=== PATIENT | female | born 1995 | race Hispanic/Latino ===

== ENCOUNTER 2023-09-07 18:00 | Inpatient (IN) | payer MEDICAID, OTHER ==
[2023-09-07] MEDS ORDERED: Ibuprofen 800 MG TAB PO PRN (21:27)
[2023-09-07] MEDS ORDERED: Diphenoxylate HCl/Atropine Tablet PO PRN (21:27)
[2023-09-07] MEDS ORDERED: Carboprost 250 MCG/ML AMP IM PRN (21:27)
[2023-09-07] MEDS ORDERED: Methylergonovine 0.2 MG/ML VIAL IM PRN (21:27)
[2023-09-07] MEDS ORDERED: Tranexamic Acid 1,000 MG/10 ML VIAL IVP PRN (21:27)
[2023-09-07] MEDS ORDERED: Lidocaine 1% (PF) 30 ML VIAL SC PRN (21:27)
[2023-09-07] MEDS ORDERED: Promethazine HCl 25 MG/ML VIAL IM PRN (21:27)
[2023-09-07] MEDS ORDERED: Misoprostol 200 MCG TAB PR PRN (21:27)
[2023-09-07] MEDS ORDERED: hydrALAZINE 20 MG/ML VIAL SLOW IVP PRN (21:27)
[2023-09-07 22:55] LABS: Hematocrit 37.7 % (34.9-44.5); Hemoglobin 13.4 g/dL (12.0-15.5); Mean Corpuscular HGB CONC 35.5 g/dL (32.0-36.0); Mean Corpuscular Hemoglobin 28.9 pg (27.0-33.0); Mean Corpuscular Volume 81.3 fL (81.6-98.3); Mean Platelet Volume 10.6 fL (7.4-10.4); Platelet Count 272 10x3/uL (150-450); RBC Distribution Width 14.6 % (11.5-14.5); Red Blood Cell (RBC) Count 4.64 10x6/uL (3.90-5.03); White Blood Cell (WBC) Count 10.1 10x3/uL (3.5-10.5)
[2023-09-07] MEDS ORDERED: Oxytocin 30 units/NS 500 ML 500 ML IV SCH ×2 (23:00)
[2023-09-07 23:35] LABS: HBsAg Index 0.16 S/CO (0-0.99); Hep B Surf Ag - L&D Non-Reactive S/CO (NonReactive)
[2023-09-07 23:37] LABS: Syphilis Antibody Nonreactive (Nonreactive); Syphilis Antibody Index 0.25 S/CO (<1.00 Non-Reactive)
[2023-09-08] MEDS: Misoprostol 100 MCG TAB VAG SCH (08:33)
[2023-09-08] MEDS: Lactated Ringer's 1,000 ML IV SCH (23:15)
[2023-09-08] MEDS: Penicillin G 2.5 MILL.units 2.5 MILL.UNITS in Premix 1 BAG IVPB SCH (23:16)
[2023-09-08] MEDS: Misoprostol 100 MCG TAB ONE (23:17)
[2023-09-08] MEDS: Oxytocin 30 units/NS 500 ML 500 ML IV SCH (23:22)
[2023-09-08] MEDS: Penicillin G Potassium 5 MILL.UNITS in Sodium Chloride 0.9% 100 ML IVPB SCH (23:22)
[2023-09-09] MEDS: Penicillin G Potassium 5 MILL.UNITS VIAL ONE (00:52)
[2023-09-09] MEDS: Ondansetron PF 4 MG/2 ML Vial IVP PRN (08:43)
[2023-09-09] MEDS: Acetaminophen 500 MG TAB PO PRN (15:06)
[2023-09-09] MEDS: diphenhydrAMINE 50 MG/ML VIAL ONE (15:46)
[2023-09-09 19:15] LABS: Analyzer IN Cardio CS NICU; RapidComm Collect By RN; pH (Cord, venous) 7.195 (7.250-7.350)
[2023-09-09 19:18] LABS: Analyzer IN Cardio CS NICU; RapidComm Collect By RN
[2023-09-09] MEDS ORDERED: Milk Of Magnesia 30 ML UDCUP PO PRN (19:40)
[2023-09-09] MEDS ORDERED: hydrALAZINE 20 MG/ML VIAL SLOW IVP PRN (19:40)
[2023-09-09] MEDS ORDERED: Bisacodyl 10 MG SUPP PR PRN (19:40)
[2023-09-09] MEDS ORDERED: Lanolin Ointment 7 GM TUBE TOP PRN (19:40)
[2023-09-09] MEDS ORDERED: Preparation H Ointment 28 GM TUBE PR PRN (19:40)
[2023-09-09] MEDS: Ibuprofen 800 MG TAB PO SCH (21:08)
[2023-09-09] MEDS: Docusate 100 MG CAP PO SCH (23:00)
[2023-09-09] MEDS ORDERED: Acetaminophen 500 MG TAB PO PRN (23:09)
[2023-09-10 04:16] LABS: #Basophils 0.03 10x3/uL (0.0-0.2); #Eosinphils 0.01 10x3/uL (0.0-0.5); #Monocytes 1.18 10x3/uL (0.0-1.1); #Neutrophils 17.08 10x3/uL (1.5-8.4); %Basophils 0.1 % (0.0-2.0); %Lymphocytes 11.3 % (18.0-47.0); %Monocytes 5.7 % (0.0-10.0); %Neutrophils 82.2 % (40.0-75.0); Hematocrit 36.1 % (34.9-44.5); Hemoglobin 12.7 g/dL (12.0-15.5); Mean Corpuscular HGB CONC 35.2 g/dL (32.0-36.0); Mean Corpuscular Volume 82.4 fL (81.6-98.3); Mean Platelet Volume 10.3 fL (7.4-10.4); Platelet Count 257 10x3/uL (150-450); RBC Distribution Width 14.9 % (11.5-14.5); Red Blood Cell (RBC) Count 4.38 10x6/uL (3.90-5.03); White Blood Cell (WBC) Count 20.8 10x3/uL (3.5-10.5)
[2023-09-10] MEDS: Ibuprofen 800 MG TAB PO SCH (06:03)
[2023-09-10] MEDS: Benzocaine-Menthol 82.5 ML CAN TOP PRN (06:06)
[2023-09-10] MEDS: Ferrous Sulfate 325 MG TAB PO SCH (08:01)
[2023-09-10] MEDS: Boostrix 0.5 ML (Tdap) VIAL (>/=7 yrs of age) IM ONE (08:01)
[2023-09-10] MEDS: Lidocaine 1% (PF) 30 ML VIAL ONE (08:01)
[2023-09-11 04:26] LABS: #Basophils 0.05 10x3/uL (0.0-0.2); #Eosinphils 0.12 10x3/uL (0.0-0.5); #Monocytes 0.65 10x3/uL (0.0-1.1); #Neutrophils 8.91 10x3/uL (1.5-8.4); %Basophils 0.4 % (0.0-2.0); %Eosinophils 0.9 % (0.0-6.0); %Lymphocytes 23.5 % (18.0-47.0); %Monocytes 5.1 % (0.0-10.0); %Neutrophils 69.5 % (40.0-75.0); Hematocrit 30.8 % (34.9-44.5); Hemoglobin 10.4 g/dL (12.0-15.5); Mean Corpuscular HGB CONC 33.8 g/dL (32.0-36.0); Mean Corpuscular Volume 82.8 fL (81.6-98.3); Mean Platelet Volume 10.2 fL (7.4-10.4); Platelet Count 234 10x3/uL (150-450); Red Blood Cell (RBC) Count 3.72 10x6/uL (3.90-5.03); White Blood Cell (WBC) Count 12.8 10x3/uL (3.5-10.5)
[2023-09-11 08:42] VITALS: BP 96/47; TEMP 98.1
== END 2023-09-11 12:55 | disposition home or self-care (01) | DRG 806 ==
LOC: CSHLD 21:14 → CSHPP 09-09 22:02
PROVIDERS: ADMIT Family Medicine; ATTEND Family Medicine
PROC: 3E0P7VZ Introduction of Hormone into Female Reproductive, Via Natural or Artificial Opening (ICD-10-PCS; 2023-09-08)
PROC: 0U7C7ZZ Dilation of Cervix, Via Natural or Artificial Opening (ICD-10-PCS; 2023-09-08)
PROC: 10907ZC Drainage of Amniotic Fluid, Therapeutic from Products of Conception, Via Natural or Artificial Opening (ICD-10-PCS; 2023-09-09)
PROC: 10E0XZZ Delivery of Products of Conception, External Approach (ICD-10-PCS; principal; 2023-09-11)
PROC: 0KQM0ZZ Repair Perineum Muscle, Open Approach (ICD-10-PCS; 2023-09-11)
PROC: 10H07YZ Insertion of Other Device into Products of Conception, Via Natural or Artificial Opening (ICD-10-PCS; 2023-09-11)
DX: O36.5930 Maternal care for other known or suspected poor fetal growth, third trimester, not applicable or unspecified (principal); O99.13 Other diseases of the blood and blood-forming organs and certain disorders involving the immune mechanism complicating the puerperium; Z37.0 Single live birth; Z3A.38 38 weeks gestation of pregnancy; O99.824 Streptococcus B carrier state complicating childbirth; O69.81X0 Labor and delivery complicated by cord around neck, without compression, not applicable or unspecified; O70.1 Second degree perineal laceration during delivery; D72.829 Elevated white blood cell count, unspecified
CPT/HCPCS: 36415; 82805; 85025; 85027; 86780; 86850; 86900; 86901; 87340; J1200; J2405; J2540; J2590; J3490; J7120